=== PATIENT | female | born 1995 | race Caucasian/White ===

== ENCOUNTER → 2016-12-17 | Outpatient (CLI) | payer OTHER ==
--- NOTE | 2016-12-17 17:22 | REP ---
HISTORY: Pain after strain. COMPARISON: None. FINDINGS: No acute fracture or destructive osseous lesion. If internal derangement is of clinical concern, consider followup with MRI if clinically relevant. Signed by Jeremiah Alexander DO 12/20/2016 04:40 P
== END ==
LOC: M WUC 13:40
PROVIDERS: ATTEND Physician Assistant
DX: S63.501A Unspecified sprain of right wrist, initial encounter (principal); X58.XXXA Exposure to other specified factors, initial encounter; Y92.89 Other specified places as the place of occurrence of the external cause; Y93.89 Activity, other specified; Y99.8 Other external cause status

== ENCOUNTER → 2017-05-03 | Outpatient (CLI) | payer OTHER | LOC: M LAB 11:22 | DX: Z32.01 Encounter for pregnancy test, result positive (principal) ==

== ENCOUNTER 2020-12-24 13:27 | Emergency (ER) | payer OTHER ==
[~2020-12-24] VITALS: Ht 167.6 cm; Wt 86.4 kg
[2020-12-24] MEDS ORDERED: JENC0.35 PO (13:42)
[2020-12-24] MEDS ORDERED: ZOLO50TA PO (13:42)
[2020-12-24 15:10] LABS: HEMOGLOBIN 13.4 g/dl (12.0-15.5); MEAN CORPUSCULAR HEMOGLOBIN 28.3 pg (27.0-33.0); MEAN CORPUSCULAR HGB CONC 32.7 g/dl (32.0-36.5); MEAN CORPUSCULAR VOLUME 86.5 fl (80.0-96.0); PLATELET COUNT, AUTOMATED 231 10^3/uL (150-450); RED BLOOD COUNT 4.74 10^6/uL (4.00-5.40); WHITE BLOOD COUNT 8.3 10^3/uL (4.0-10.0)
[2020-12-24 15:39] LABS: AMPHETAMINES LEVEL URINE NEGATIVE (NEGATIVE); BARBITURATES URINE NEGATIVE (NEGATIVE); BENZODIAZEPINES URINE NEGATIVE (NEGATIVE); CANNABINOIDS URINE NEGATIVE (NEGATIVE); COCAINE METABOLITE URINE NEGATIVE (NEGATIVE); METHADONE URINE NEGATIVE (NEGATIVE); OPIATES URINE NEGATIVE (NEGATIVE); PHENCYCLIDINE URINE NEGATIVE (NEGATIVE)
[2020-12-24 18:32] VITALS: BP 128/68
== END 2020-12-24 18:35 | disposition home or self-care (01) ==
LOC: M ED 13:27
DX: F32.9 Major depressive disorder, single episode, unspecified (principal); R45.851 Suicidal ideations; Z88.2 Allergy status to sulfonamides; Z88.1 Allergy status to other antibiotic agents